=== PATIENT | female | born 1995 | race Caucasian/White ===

== ENCOUNTER 2020-06-09 22:20 | Emergency (ER) | payer OTHER ==
[~2020-06-09] VITALS: Ht 149.9 cm; Wt 45.4 kg
[2020-06-09 22:28] VITALS: BP 135/90
[2020-06-10 00:58] VITALS: BP 135/90
== END 2020-06-10 00:58 | disposition left against medical advice (07) ==
LOC: MED 22:20
DX: R10.30 Lower abdominal pain, unspecified (principal); Z53.21 Procedure and treatment not carried out due to patient leaving prior to being seen by health care provider
CPT/HCPCS: 81025

== ENCOUNTER 2023-09-24 12:00 | Emergency (ER) | payer MEDICAID, OTHER ==
[~2023-09-24] VITALS: Ht 149.9 cm; Wt 48.2 kg
[2023-09-24 12:11] VITALS: BP 106/74; PULSE 75; RESP 15; TEMP 98.8; O2SAT 100
[2023-09-24] MEDS ORDERED: METR-520 PO (12:34)
== END 2023-09-24 12:41 | disposition home or self-care (01) ==
LOC: MED 12:00
DX: N89.8 Other specified noninflammatory disorders of vagina (principal); Z76.0 Encounter for issue of repeat prescription; Z79.899 Other long term (current) drug therapy; Z88.6 Allergy status to analgesic agent
CPT/HCPCS: 99281